=== PATIENT | female | born 1940 | race Caucasian/White ===

== ENCOUNTER → 2016-08-11 | Outpatient (CLI) | payer BC ==
[~2016-08-11] MED LIST: AMLO2.5T PO; LEVO88TA3 PO
--- NOTE | 2016-08-11 15:38 | MAMMOGRAPHY REPORT ---
BILATERAL DIGITAL SCREENING MAMMOGRAM WITH CAD: 08/11/2016 CLINICAL HISTORY: Routine screening. Patient has no complaints. TECHNIQUE: Bilateral CC and MLO views were obtained. Current study was also evaluated with a Compute r Aided Detection (CAD) system. COMPARISON: Comparison is made to exams dated: 08/09/2015 mammogram, 08/07/2014 mammogram, 08/02/2013 m ammogram, 05/26/2012 mammogram, 05/26/2011 mammogram, and 05/14/2010 mammogram - [facility] enter. BREAST COMPOSITION: The tissue of both breasts is almost entirely fatty. FINDINGS: There are a few stable benign-appearing microcalcifications in the breasts. No suspicious mass, architectural distortion or cluster of microcalcifications is seen. IMPRESSION: ACR BI-RADS CATEGORY 1: NEGATIVE There is no mammographic evidence of malignancy. A 1 year screening mammogram is recommended. The pa tient will receive written notification of the results. Approximately 10% of breast cancers are not detected with mammography. A negative mammographic report should not delay biopsy if a clinically suggestive mass is present. Lily Schuster M.D. ay/:08/11/2016 14:37:17 [employer]: Mishel MICHELLE(Harjinder)(M), [facility] letter sent: Normal 1/2 BI-RADS Code: ACR BI-RADS Category 1: Negative
== END | disposition home or self-care (01) ==
LOC: C.MAMM 10:34
PROVIDERS: ATTEND Family Medicine
DX: Z12.31 Encounter for screening mammogram for malignant neoplasm of breast (principal)

== ENCOUNTER → 2017-05-31 | Outpatient (CLI) | payer BC ==
--- NOTE | 2017-05-31 12:27 | DIAGNOSTIC IMAGING REPORT ---
LEFT KNEE 2 VIEWS HISTORY: Left knee pain. COMPARISON: None. FINDINGS: There is no fracture or dislocation. Small knee effusion. Cartilage spaces are maintained for age. No radiopaque foreign bodies. IMPRESSION: Small left knee effusion. No fractures. Electronically signed by: Cleveland Sims M.D. 05/31/2017 12:26 PM Dictated Date/Time: 05/31/2017 12:25 PM
== END | disposition home or self-care (01) ==
LOC: C.RAD1850 12:13
PROVIDERS: ATTEND Family Medicine
DX: M25.569 Pain in unspecified knee (principal); M25.462 Effusion, left knee

== ENCOUNTER 2020-07-31 13:00 | Inpatient (IN) ==
--- NOTE | 2020-07-31 13:32 | Emergency Department Note ---
History of Present Illness General Chief complaint: Referred by Doctor Stated complaint: CHILLS AND FATIGUED Time Seen by Provider: 07/31/20 13:12 Source: patient and family Mode of arrival: ambulatory Limitations: no limitations History of Present Illness Provider complaint: weakness, chills Onset (ago): day(s) 10 Maximum Pain Intensity: 2 This is a 79-year-old female presents emergency department with 10 days of illness. Patient states she began having intermittent fevers and weakness last week. States on Wednesday of last week she went to urgent care, had a Covid test done which was negative, a check of her urine which was negative for infection, and she was encouraged to follow-up with your PCP. Patient states on she contacted her family physician, had a telehealth visit, and labs were ordered which she had done that same day. Patient states she was told she would be contacted with results on Wednesday however she never received a phone ca ll so she finally called this week and was instructed to come the emergency room. Patient states she has not had any persistent fever since then although does continue to complain of chills and weakness. She states she has had slight decreased appetite, no overt nausea or vomiting. She states she had one episode of loose stools, no blood was noted. Denies any rash or swelling. She denies any cough or cold symptoms. States she has noticed pain along the lower anterior ribs bilaterally with a deep breath. Daughter states she also noted that her mother was complaining of back pain today. No recent known sick contacts. She states she was fully vaccinated against coronavirus. Pt seen during a time of high acuity and national emergency pandemic while wearing PPE. Home Medications Medication Instructions Recorded Confirmed Type albuterol sulfate 2 puff INHALATION QID PRN 07/31/20 07/31/20 History amlodipine 2.5 mg PO DAILY 07/31/20 07/31/20 History calcium carbonate [Antacid Calcium] 200 mg PO BID PRN 07/31/20 07/31/20 History levothyroxine 50 mcg PO DAILYBB 07/31/20 07/31/20 History Allergies Allergy/AdvReac Type Severity Reaction Status Date / Time No Known Allergies Allergy Unverified 07/31/20 15:04 Past Med/Surg History Medical History (Updated 07/31/20 @ 21:03 by RAMU Mojica) Asthma Generalized weakness Osteopenia Pneumonia Thyroid goiter Unspecified hypothyroidism Family History (Updated 07/31/20 @ 20:37 by RAMU Mojica) Other Asthma COPD (chronic obstructive pulmonary disease) Coronary heart disease Dyslipidemia Hypertension Social History Smoking Status: Never smoker Second Hand Exposure: No; Do You Dip or Chew Tobacco: No; Tobacco Cessation Education Requested by Patient: No Hx Alcohol Use: Yes Alcohol type: wine Hx Substance Use: No Preferred Language: Somali Communication Ability: Effective Medical Intern Required: No Beliefs That Will Affect Care: None Current Living Situation: Spouse Current Living Situation Comment: Lives at home w/ Other Information That Helps Us Care for You: No Feels Safe at Home: Yes Safety Concerns: Feels Safe At This Time Assistive Devices: Glasses Review of Systems See HPI for pertinent positives & negatives. and A total of 10 systems reviewed and were otherwise negative Physical Exam Vital Signs Vital Signs - 24 hr 07/31/20 13:07 07/31/20 13:39 07/31/20 14:00 Temperature 36.6 C Temperature Source Skin Pulse Rate 112 H 108 H 101 H Pulse Rate from SpO2 Sensor 108 H 100 H Respiratory Rate 18 20 20 Respiratory Effort / Characteristics Non-Labored Spontaneous Respiratory Depth Normal Blood Pressure 160/79 H 134/85 147/64 H Blood Pressure Mean 106 101 91 Blood Pressure Position Sitting Pulse Oximetry 96 95 94 Oxygen Delivery Method Room Air Sepsis Recent Fever Within 48 Hours No Sepsis New/Unexplained Change in Mental Status N/A Sepsis Action Taken by Nursing No Action Required 07/31/20 14:30 07/31/20 15:00 07/31/20 15:30 Temperature Temperature Source Pulse Rate 103 H 109 H 106 H Pulse Rate from SpO2 Sensor 99 H 108 H 104 H Respiratory Rate 20 20 20 Respiratory Effort / Characteristics Respiratory Depth Blood Pressure 141/67 H 137/65 128/55 L Blood Pressure Mean 91 89 79 Blood Pressure Position Pulse Oximetry 93 93 95 Oxygen Delivery Method Sepsis Recent Fever Within 48 Hours Sepsis New/Unexplained Change in Mental Status Sepsis Action Taken by Nursing 07/31/20 16:00 07/31/20 16:01 07/31/20 17:23 Temperature Temperature Source Pulse Rate 108 H 109 H 109 H Pulse Rate from SpO2 Sensor 108 H 108 H 109 H Respiratory Rate 31 H 35 H 20 Respiratory Effort / Characteristics Respiratory Depth Blood Pressure 134/63 135/63 Blood Pressure Mean 86 87 Blood Pressure Position Pulse Oximetry 92 92 93 Oxygen Delivery Method Sepsis Recent Fever Within 48 Hours Sepsis New/Unexplained Change in Mental Status Sepsis Action Taken by Nursing 07/31/20 17:30 07/31/20 18:00 Temperature Temperature Source Pulse Rate 105 H 105 H Pulse Rate from SpO2 Sensor 105 H Respiratory Rate 20 12 Respiratory Effort / Characteristics Respiratory Depth Blood Pressure 145/62 H 125/69 Blood Pressure Mean 89 87 Blood Pressure Position Pulse Oximetry 93 91 Oxygen Delivery Method Sepsis Recent Fever Within 48 Hours Sepsis New/Unexplained Change in Mental Status Sepsis Action Taken by Nursing GENERAL: alert, well appearing, well nourished, no distress, non-toxic EYE EXAM: normal conjunctiva, PERRL and EOM's grossly intact OROPHARYNX: no exudate, no erythema, lips, buccal mucosa, and tongue normal and mucous membranes are moist NECK: supple, no nuchal rigidity, no adenopathy, non-tender LUNGS: Clear to auscultation. Normal chest wall mechanics, no w/r/r HEART: no murmurs, S1 normal and S2 normal ABDOMEN: abdomen soft, non-tender, normo-active bowel sounds, no masses, no rebound or guarding. BACK: Back is symmetrical on inspection and there is no deformity, no midline tenderness, no CVA tenderness. SKIN: no rashes and no bruising UPPER EXTREMITIES: upper extremities are grossly normal. FROM, nml pulses b/l. LOWER EXTREMITIES: No pitting edema. FROM, nml pulses b/l. NEURO EXAM: Normal sensorium, cranial nerves II-XII grossly intact, normal speech, no gross weakness of arms, no gross weakness of legs. Gross sensation intact. Course Course 1340: Outpatient labs obtained show a reassuring BMP, CBC showed WBC count of 2.6, normal H&H, and platelets of 60. Lyme antibody test was negative. 1345: Pt updated on outpt results. 173: Patient updated on additional results. Patient is still tachycardic and mildly tachypneic. Room air oxygen saturations have been in the low 90s. 191: Patient updated on additional results. Patient is still tachycardic, sats in the low 90s, no obvious increased work of breathing. 1925: Case discussed with hospitalist. Administered Medications Acetaminophen (Acetaminophen 325 Mg Tab) 650 mg PO Q4H PRN PRN Reason: Pain or Fever Stop: 08/30/20 22:00 Last Admin: 07/31/20 22:35 Dose: 650 mg Documented by: [id number] Amlodipine Besylate (Amlodipine Besylate 5 Mg Tab) 2.5 mg PO DAILY BONG Stop: 08/31/20 08:59 Last Admin: 08/01/20 10:56 Dose: 2.5 mg Documented by: [id number] Enoxaparin Sodium (Enoxaparin Inj 40 Mg/0.4 Ml Syr) 40 mg SQ Q24H BONG Stop: 08/30/20 22:59 Last Admin: 08/01/20 19:49 Dose: Not Given Documented by: [id number] Admin: 07/31/20 23:28 Dose: Not Given Documented by: [id number] Ceftriaxone Sodium 2,000 mg/ (Dextrose) 70 mls @ 100 mls/hr IV Q24H [facility]; Protocol Stop: 08/07/20 19:59 Last Admin: 08/01/20 19:49 Dose: 100 mls/hr Documented by: [id number] Levothyroxine Sodium (Levothyroxine Sodium 50 Mcg Tablet) 50 mcg PO DAILYBB [facility] Stop: 08/31/20 06:29 Last Admin: 08/01/20 05:36 Dose: 50 mcg Documented by: [id number] Potassium Chloride (Potassium Chloride Crtab 20 Meq Tabcr) 20 meq PO BID BONG Stop: 08/02/20 09:01 Last Admin: 08/01/20 19:49 Dose: 20 meq Documented by: [id number] Admin: 08/01/20 10:56 Dose: 20 meq Documented by: [id number] Discontinued Medications Doxycycline Hyclate (Doxycycline Hyclate 100 Mg Cap) 100 mg PO NOW STA Stop: 07/31/20 19:05 Last Admin: 07/31/20 19:26 Dose: 100 mg Documented by: [id number] Sodium Chloride (Nss 1000ml) 1,000 mls @ 250 mls/hr IV .Q4H BONG Stop: 08/30/20 13:44 Last Admin: 07/31/20 22:04 Dose: Not Given Documented by: [id number] Infusion: 07/31/20 22:03 Dose: 0 mls/hr Documented by: [id number] Admin: 07/31/20 20:22 Dose: 250 mls/hr Documented by: [id number] Infusion: 07/31/20 18:07 Dose: 250 mls/hr Documented by: [id number] Admin: 07/31/20 14:07 Dose: 250 mls/hr Documented by: [id number] Ceftriaxone Sodium (Rocephin) 2,000 mg in 70 mls @ 140 mls/hr IV NOW STA Stop: 07/31/20 19:33 Last Infusion: 07/31/20 20:22 Dose: 0 mls/hr Documented by: [id number] Admin: 07/31/20 19:26 Dose: 140 mls/hr Documented by: [id number] Lactated Ringer's (Lr) 1,000 mls @ 80 mls/hr IV .[id number] ONE Stop: 08/01/20 10:30 Last Infusion: 08/01/20 10:57 Dose: 0 mls/hr Documented by: [id number] Admin: 07/31/20 22:18 Dose: 80 mls/hr Documented by: [id number] Doxycycline Hyclate 100 mg/ (Dextrose) 110 mls @ 50 mls/hr IV Q12H BONG Stop: 08/08/20 05:59 Last Infusion: 08/01/20 08:17 Dose: 0 mls/hr Documented by: [id number] Admin: 08/01/20 05:36 Dose: 50 mls/hr Documented by: [id number] Ioversol (Optiray 350 500ml) 120 ml IV ONCE ONE Stop: 07/31/20 18:13 Last Admin: 07/31/20 18:13 Dose: 120 ml Documented by: [id number] Medical Decision Making Differential Diagnosis Differential Diagnosis includes but is not limited to dehydration, stroke, anemia, hypoglycemia, hyponatremia, hypernatremia, urinary tract infection, pneumonia, bronchitis, sepsis, gastroenteritis, additional abdominal pathology, metabolic abnormalities and infections. Medical Records Attestation: I reviewed the patient's medical records. Home Medications Current Medication List: was personally reviewed by me Laboratory Data Attestation: I reviewed the patient's lab results. Result diagrams: 08/01/20 08:17 08/01/20 08:17 Lab Results 07/31/20 07/31/20 07/31/20 Range/Units 13:45 14:06 14:06 WBC 7.11 (4.8-10.8) K/uL RBC 4.12 L (4.2-5.4) M/uL Hgb 12.8 (12.0-16.0) g/dL Hct 37.2 (37-47) % MCV 90.3 (80-100) fL MCH 31.1 (25-34) pg MCHC 34.4 (32-36) g/dL RDW Std Deviation 45.6 (36.4-46.3) fL RDW Coeff of Puneet 13.7 (11.5-14.5) % Plt Count 203 (130-400) K/uL MPV 9.8 (7.4-10.4) fL Immature Gran % (Auto) 0.3 % Neut % (Auto) 72.9 % Lymph % (Auto) 17.7 % Teller % (Auto) 8.4 % Eos % (Auto) 0.3 % Baso % (Auto) 0.4 % Neut # (Auto) 5.18 (1.4-6.5) K/uL Lymph # (Auto) 1.26 (1.2-3.4) K/uL Teller # (Auto) 0.60 H (0.11-0.59) K/uL Eos # (Auto) 0.02 (0-0.5) K/uL Baso # (Auto) 0.03 (0-0.2) K/uL Immature Gran # (Auto) 0.02 (0.00-0.02) K/uL Sodium 135 L (136-145) mmol/L Potassium 3.7 (3.5-5.1) mmol/L Chloride 104 (98-107) mmol/L Carbon Dioxide 23 (21-32) mmol/L Anion Gap 8.0 (3-11) BUN 7 (7-18) mg/dl Creatinine 0.65 (0.6-1.2) mg/dl Est Cr Clr Drug Dosing 72.5 ml/min Est GFR ( Amer) 97.9 ml/min Est GFR (Non-Af Amer) 84.4 ml/min BUN/Creatinine Ratio 11.2 (10-20) Glucose 97 (70-99) mg/dl Lactate (0.4-2.0) mmol/L Calcium 8.3 L (8.5-10.1) mg/dl Magnesium 2.3 (1.8-2.4) mg/dl Total Bilirubin 0.7 (0.2-1) mg/dl AST 75 H (15-37) U/L ALT 126 H (12-78) U/L Alkaline Phosphatase 171 H (45-117) U/L Troponin I < 0.015 (0-0.045) ng/ml C-Reactive Protein (0-0.29) mg/dl NT-Pro-B Natriuret Pep 427 (0-1800) pg/ml Total Protein 6.9 (6.4-8.2) gm/dl Albumin 2.8 L (3.4-5.0) gm/dl Globulin 4.1 H (2.5-4.0) gm/dl Albumin/Globulin Ratio 0.7 L (0.9-2) Lipase 120 (73-393) U/L Procalcitonin (0-0.5) ng/ml TSH 0.470 (0.300-4.500) uIu/ml Urine Color Dark Yellow Urine Appearance Cloudy A (Clear) Urine pH 5.5 (4.5-7.5) Ur Specific [place] 1.017 (1.000-1.030) Urine Protein 1+ H (Negative) Urine Glucose (UA) Negative (Negative) Urine Ketones Trace H (Negative) Urine Blood Negative (Negative) Urine Nitrite Negative (Negative) Urine Bilirubin Negative (Negative) Urine Urobilinogen Positive H (Negative) Ur Leukocyte Esterase 1+ H (Negative) Urine WBC (Auto) 5-10 H (0-5) /hpf Urine RBC (Auto) 0-4 (0-4) /hpf U Hyaline Cast (Auto) 1-5 (0-5) /lpf U Epithel Cells (Auto) 10-20 H (0-5) /lpf Urine Bacteria (Auto) Negative (Negative) Anaplasma Smear See Comment COVID-19 Eval Order SARS-CoV-2 (PCR) (Negative) 07/31/20 07/31/20 07/31/20 Range/Units 14:06 14:06 19:25 WBC (4.8-10.8) K/uL RBC (4.2-5.4) M/uL Hgb (12.0-16.0) g/dL Hct (37-47) % MCV (80-100) fL MCH (25-34) pg MCHC (32-36) g/dL RDW Std Deviation (36.4-46.3) fL RDW Coeff of Puneet (11.5-14.5) % Plt Count (130-400) K/uL MPV (7.4-10.4) fL Immature Gran % (Auto) % Neut % (Auto) % Lymph % (Auto) % Teller % (Auto) % Eos % (Auto) % Baso % (Auto) % Neut # (Auto) (1.4-6.5) K/uL Lymph # (Auto) (1.2-3.4) K/uL Teller # (Auto) (0.11-0.59) K/uL Eos # (Auto) (0-0.5) K/uL Baso # (Auto) (0-0.2) K/uL Immature Gran # (Auto) (0.00-0.02) K/uL Sodium (136-145) mmol/L Potassium (3.5-5.1) mmol/L Chloride (98-107) mmol/L Carbon Dioxide (21-32) mmol/L Anion Gap (3-11) BUN (7-18) mg/dl Creatinine (0.6-1.2) mg/dl Est Cr Clr Drug Dosing ml/min Est GFR ( Amer) ml/min Est GFR (Non-Af Amer) ml/min BUN/Creatinine Ratio (10-20) Glucose (70-99) mg/dl Lactate (0.4-2.0) mmol/L Calcium (8.5-10.1) mg/dl Magnesium (1.8-2.4) mg/dl Total Bilirubin (0.2-1) mg/dl AST (15-37) U/L ALT (12-78) U/L Alkaline Phosphatase (45-117) U/L Troponin I (0-0.045) ng/ml C-Reactive Protein 11.00 H (0-0.29) mg/dl NT-Pro-B Natriuret Pep (0-1800) pg/ml Total Protein (6.4-8.2) gm/dl Albumin (3.4-5.0) gm/dl Globulin (2.5-4.0) gm/dl Albumin/Globulin Ratio (0.9-2) Lipase (73-393) U/L Procalcitonin 0.16 (0-0.5) ng/ml TSH (0.300-4.500) uIu/ml Urine Color Urine Appearance (Clear) Urine pH (4.5-7.5) Ur Specific [place] (1.000-1.030) Urine Protein (Negative) Urine Glucose (UA) (Negative) Urine Ketones (Negative) Urine Blood (Negative) Urine Nitrite (Negative) Urine Bilirubin (Negative) Urine Urobilinogen (Negative) Ur Leukocyte Esterase (Negative) Urine WBC (Auto) (0-5) /hpf Urine RBC (Auto) (0-4) /hpf U Hyaline Cast (Auto) (0-5) /lpf U Epithel Cells (Auto) (0-5) /lpf Urine Bacteria (Auto) (Negative) Anaplasma Smear COVID-19 Eval Order Covid19 at [facility] SARS-CoV-2 (PCR) (Negative) 07/31/20 07/31/20 Range/Units 19:25 21:15 WBC (4.8-10.8) K/uL RBC (4.2-5.4) M/uL Hgb (12.0-16.0) g/dL Hct (37-47) % MCV (80-100) fL MCH (25-34) pg MCHC (32-36) g/dL RDW Std Deviation (36.4-46.3) fL RDW Coeff of Puneet (11.5-14.5) % Plt Count (130-400) K/uL MPV (7.4-10.4) fL Immature Gran % (Auto) % Neut % (Auto) % Lymph % (Auto) % Teller % (Auto) % Eos % (Auto) % Baso % (Auto) % Neut # (Auto) (1.4-6.5) K/uL Lymph # (Auto) (1.2-3.4) K/uL Teller # (Auto) (0.11-0.59) K/uL Eos # (Auto) (0-0.5) K/uL Baso # (Auto) (0-0.2) K/uL Immature Gran # (Auto) (0.00-0.02) K/uL Sodium (136-145) mmol/L Potassium (3.5-5.1) mmol/L Chloride (98-107) mmol/L Carbon Dioxide (21-32) mmol/L Anion Gap (3-11) BUN (7-18) mg/dl Creatinine (0.6-1.2) mg/dl Est Cr Clr Drug Dosing ml/min Est GFR ( Amer) ml/min Est GFR (Non-Af Amer) ml/min BUN/Creatinine Ratio (10-20) Glucose (70-99) mg/dl Lactate 1.2 (0.4-2.0) mmol/L Calcium (8.5-10.1) mg/dl Magnesium (1.8-2.4) mg/dl Total Bilirubin (0.2-1) mg/dl AST (15-37) U/L ALT (12-78) U/L Alkaline Phosphatase (45-117) U/L Troponin I (0-0.045) ng/ml C-Reactive Protein (0-0.29) mg/dl NT-Pro-B Natriuret Pep (0-1800) pg/ml Total Protein (6.4-8.2) gm/dl Albumin (3.4-5.0) gm/dl Globulin (2.5-4.0) gm/dl Albumin/Globulin Ratio (0.9-2) Lipase (73-393) U/L Procalcitonin (0-0.5) ng/ml TSH (0.300-4.500) uIu/ml Urine Color Urine Appearance (Clear) Urine pH (4.5-7.5) Ur Specific [place] (1.000-1.030) Urine Protein (Negative) Urine Glucose (UA) (Negative) Urine Ketones (Negative) Urine Blood (Negative) Urine Nitrite (Negative) Urine Bilirubin (Negative) Urine Urobilinogen (Negative) Ur Leukocyte Esterase (Negative) Urine WBC (Auto) (0-5) /hpf Urine RBC (Auto) (0-4) /hpf U Hyaline Cast (Auto) (0-5) /lpf U Epithel Cells (Auto) (0-5) /lpf Urine Bacteria (Auto) (Negative) Anaplasma Smear COVID-19 Eval Order SARS-CoV-2 (PCR) NEGATIVE (Negative) Imaging Data Radiologist's Impression: Chest X-Ray 07/31/20 13:29 XR chest 1V portable HISTORY: Atypical chest pain. COMPARISON: Chest 04/09/2015. FINDINGS: No pneumothorax. The heart is borderline enlarged. There is mild diffuse interstitial/vascular thickening. This may represent mild pulmonary edema. Small left pleural effusion and left basilar densities. Right tracheal deviation, unchanged. This could be due to a left-sided thyroid goiter. There is progressive soft tissue prominence within the left paratracheal/superior mediastinal location. IMPRESSION: 1. Progressive interstitial/vascular thickening and a small left pleural effusion. This favors mild interstitial pulmonary edema. 2. Left basilar densities are nonspecific but favor atelectasis from the pleural effusion. 3. Right tracheal deviation, unchanged. There is slight progression of the soft tissue prominence within the superior mediastinum. This favors a thyroid goiter. However, dedicated nonemergent chest CT is recommended for further evaluation. ACT 112: Negative or not required by law. Electronically signed by: Cleveland Sims M.D. 07/31/2020 2:10 PM Abdomen Ultrasound 07/31/20 15:41 ABDOMINAL ULTRASOUND, RIGHT UPPER QUADRANT HISTORY: Abnormal liver function tests, fever. COMPARISON: None. FINDINGS: The liver is echogenic. The liver is heterogeneous. There is slight nodularity of the liver surface. No biliary ductal dilatation is present. Common bile duct measures 4 mm in caliber. No gallstones are identified. There is a tiny 4 mm gallbladder polyp. Pancreatic body is normal. Head and tail are obscu red. There is no right hydronephrosis. IMPRESSION: 1. Hepatic steatosis. Heterogeneity of the liver and slight nodularity of the liver surface raises the possibility of cirrhosis. 2. No gallstones. Tiny 4 mm gallbladder polyp. 3. No biliary ductal dilatation. ACT 112: Negative or not required by law. Electronically signed by: Mehdi Gonzalez M.D. 07/31/2020 4:51 PM Chest CTA 07/31/20 17:31 CT ANGIOGRAM OF THE CHEST CLINICAL HISTORY: Atypical chest pain. Pleural effusion. COMPARISON STUDY: Chest x-ray dated 07/31/2020. TECHNIQUE: Following the IV administration of 120 cc of Optiray 350, CT angiogram of the chest was performed from the upper abdomen to the thoracic inlet utilizing the pulmonary embolus protocol. Images are reviewed in the axial, sagittal, and coronal planes. 3-D MIPS images are created and assessed. IV contrast was administered without complication. A dose lowering technique was utilized adhering to the principles of ALARA. CT DOSE: 294.97 mGy.cm FINDINGS: Thyroid: The thyroid gland is enlarged and heterogeneous. An approximately 8 cm heterogeneous structure extending into the mediastinum and causing rightward deviation of the trachea likely represents a thyroid goiter. This contains coarse calcifications. Thoracic aorta: The thoracic aorta is normal in caliber and demonstrates bovine variant arch anatomy. No dissection is seen. Pulmonary vasculature: The pulmonary trunk is normal in caliber. There are no filling defects identified in main, lobar, or segmental pulmonary branches to suggest pulmonary embolus. Heart: The heart is top normal in size and without pericardial effusion. Lungs and pleural spaces: Evaluation of the lung parenchyma is degraded by motion artifact. There is bibasilar consolidation, left greater than right. There are trace pleural effusions, left larger than right. The trachea and central airways are clear. There is mild diffuse intralobular septal thickening. Mediastinum: There are mildly enlarged mediastinal lymph nodes. A precarinal node on image #157 measures 12 mm in short axis. Prevascular nodes measure up to 9 mm in short axis. Thuy: Clear. Axillae: There is no axillary lymphadenopathy. Upper abdomen: There is a small hiatal hernia. Partially visualized upper abdominal viscera is otherwise within normal limits. Skeletal structures: The skeletal structures are osteopenic. Degenerative change and hyperkyphosis are noted in the thoracic spine. No lytic or blastic bony lesions are seen. IMPRESSION: 1. There is no evidence of pulmonary embolus in the main, lobar, or segmental pulmonary arteries. 2. There is bibasilar consolidation, left greater than right. This could represent atelectasis versus pneumonia/aspiration pneumonitis. Clinical correlation will be required and radiographic follow-up to resolution is recommended. 3. Trace pleural effusions, left larger than right. 4. Multinodular goiter, with an 8 cm heterogeneous mass lesion extending into the mediastinum. This is pathologically indeterminant and likely represents extension of the goiter. 5. Additional findings as above. ACT 112: Negative or not required by law. Electronically signed by: Derrick Mancuso M.D. 07/31/2020 6:47 PM ECG Data Attestation: I personally reviewed and interpreted this ECG as follows: Indication: + weakness Rate (beats per minute): 103 Rhythm: + sinus tachycardia ECG Intervals/blocks: + Normal QRS and + Normal QT ECG [place]: + Normal ECG ST segments: + Nonspecific ST abnormalities Additional Comments: baseline artifact MDM Narrative An order was placed for continuous cardiac monitoring. The monitor shows a rate of 105_ with _sinus tachycardia_ rhythm. Patient has no contributing family history given her age. Patient was first seen and observation began at 1312 and was necessary in order to determine etiology of fevers and weakness. Upon re-evaluation, 6 hours of observation revealed that the patient should be admitted. Discharge time at 1926. This is a 79-year-old female who presents with a prolonged evolution of fevers, weakness, loss of appetite, and was referred in by her PCP. I did review outpatient labs from last week, and we were able to compare to this week. Patient's prior leukopenia and thrombocytopenia appeared resolved on today's labs. Patient had a septic work-up started. While there were no prior LFTs for comparison patient did state she recollects being told her liver numbers were abnormal previously. I right upper quadrant ultrasound was reassuring. Due to concern for small pleural effusion noted on the left with no prior history, no evidence of congestive heart failure otherwise, patient sent for CT imaging which ultimately revealed bilateral lower lobe pneumonia. Patient started on antibiotic coverage for presumed community-acquired pneumonia. No recent travel, hospitalization. No underlying pulmonary history to suggest she is at increased risk for Pseudomonas. Patient was hemodynamically stable in the emergency room. I do not suspect bacteremia/sepsis. No evidence of PE. No evidence for pericarditis/myocarditis. Given patient's age and elevated CURB 65 score, persistent tachycardia, and borderline hypoxia, case discussed with hospitalist for additional inpatient evaluation and monitoring. Patient and daughter bedside made aware of all results, verbalized understanding, and were in agreement with plan. Impression & Plan Pneumonia, Tachycardia, Fever, Generalized weakness Discharge Plan Visit Data Chief Complaint: Referred by Doctor Stated Complaint: CHILLS AND FATIGUED ED Provider: Alayna Mckeon Discharge Problem: Pneumonia, Tachycardia, Fever, Generalized weakness Patient Disposition: Admitted As Inpatient Discharge Instructions Interventions: ED Discharge Assessment Last Done: 07/31/20 22:12 Discharge Problem: Pneumonia Qualifiers: Pneumonia type: due to unspecified organism Laterality: bilateral Lung location: lower lobe of lung Qualified Code(s): J18.9 - Pneumonia, unspecified organism Fever Qualifiers: Fever type: due to other condition Qualified Code(s): R50.81 - Fever presenting with conditions classified elsewhere
[2020-07-31] MEDS: SODIUM CHLORIDE 0.9% 1000ML 1,000 ML IV SCH ×3 (14:07→22:04)
--- NOTE | 2020-07-31 14:12 | XRay Report ---
XR chest 1V portable HISTORY: Atypical chest pain. COMPARISON: Chest 04/09/2015. FINDINGS: No pneumothorax. The heart is borderline enlarged. There is mild diffuse interstitial/vascu lar thickening. This may represent mild pulmonary edema. Small left pleural effusion and left basilar densities. Right tracheal deviation, unchanged. This could be due to a left-sided thyroid goiter. Th ere is progressive soft tissue prominence within the left paratracheal/superior mediastinal location. IMPRESSION: 1. Progressive interstitial/vascular thickening and a small left pleural effusion. This favors mild i nterstitial pulmonary edema. 2. Left basilar densities are nonspecific but favor atelectasis from the pleural effusion. 3. Right tracheal deviation, unchanged. There is slight progression of the soft tissue prominence wit hin the superior mediastinum. This favors a thyroid goiter. However, dedicated nonemergent chest CT i s recommended for further evaluation. ACT 112: Negative or not required by law. Electronically signed by: Cleveland Sims M.D. 07/31/2020 2:10 PM
[2020-07-31 14:20] LABS: Basophils # (auto) 0.03 K/uL (0-0.2); Basophils % (auto) 0.4 %; Eosinophils # (auto) 0.02 K/uL (0-0.5); Eosinophils % (auto) 0.3 %; Hematocrit (blood only) 37.2 % (37-47); Hemoglobin 12.8 g/dL (12.0-16.0); Immature Granulocytes # (auto) 0.02 K/uL (0.00-0.02); Immature Granulocytes % (auto) 0.3 %; Lymphocytes # (auto) 1.26 K/uL (1.2-3.4); Lymphocytes % (auto) 17.7 %; Mean Corpuscular Hemoglobin 31.1 pg (25-34); Mean Corpuscular Hgb Conc 34.4 g/dL (32-36); Mean Corpuscular Volume 90.3 fL (80-100); Mean Platelet Volume 9.8 fL (7.4-10.4); Monocytes % (auto) 8.4 %; Neutrophils # (auto) 5.18 K/uL (1.4-6.5); Neutrophils % (auto) 72.9 %; Platelet Count 203 K/uL (130-400); RDW Coefficient of Variation 13.7 % (11.5-14.5); RDW Standard Deviation 45.6 fL (36.4-46.3); Red Blood Count 4.12 M/uL (4.2-5.4); White Blood Count 7.11 K/uL (4.8-10.8)
[2020-07-31 14:27] LABS: Appearance Urine Cloudy (Clear); Bacteria Urine Automated Negative (Negative); Bilirubin Urine Negative (Negative); Blood Urine Negative (Negative); Color Urine Dark Yellow; Glucose Urine UA Negative (Negative); Ketones Urine Trace (Negative); Leukocyte Esterase Urine 1+ (Negative); Nitrite Urine Negative (Negative); Protein Urine 1+ (Negative); Specific Gravity Urine 1.017 (1.000-1.030); Urobilinogen Urine Positive (Negative); pH Urine 5.5 (4.5-7.5)
[2020-07-31 14:46] LABS: RBC Urine Automated 0-4 /hpf (0-4)
[2020-07-31 14:51] LABS: Alanine Aminotransferase 126 U/L (12-78); Albumin Level 2.8 gm/dl (3.4-5.0); Aspartate Aminotransferase 75 U/L (15-37); BUN Creatinine Ratio 11.2 (10-20); Blood Urea Nitrogen 7 mg/dl (7-18); Calcium 8.3 mg/dl (8.5-10.1); Carbon Dioxide 23 mmol/L (21-32); Chloride 104 mmol/L (98-107); Creatinine Clr Calc Pharmacy 72.5 ml/min; Est GFR (African American) 97.9 ml/min; Est GFR (Non-African American) 84.4 ml/min; Glucose 97 mg/dl (70-99); Lipase 120 U/L (73-393); Magnesium 2.3 mg/dl (1.8-2.4); Potassium 3.7 mmol/L (3.5-5.1); Sodium 135 mmol/L (136-145)
[2020-07-31 15:00] LABS: Albumin Globulin Ratio 0.7 (0.9-2); Alkaline Phosphatase 171 U/L (45-117); Bilirubin,Total 0.7 mg/dl (0.2-1); Globulin 4.1 gm/dl (2.5-4.0); NT Pro B Type Natriuretic Pept 427 pg/ml (0-1800); Total Protein 6.9 gm/dl (6.4-8.2); Troponin I < 0.015 ng/ml (0-0.045)
--- NOTE | 2020-07-31 16:53 | Ultrasound Report ---
ABDOMINAL ULTRASOUND, RIGHT UPPER QUADRANT HISTORY: Abnormal liver function tests, fever. COMPARISON: None. FINDINGS: The liver is echogenic. The liver is heterogeneous. There is slight nodularity of the liver surface. No biliary ductal dilatation is present. Common bile duct measures 4 mm in caliber. No gall stones are identified. There is a tiny 4 mm gallbladder polyp. Pancreatic body is normal. Head and ta il are obscured. There is no right hydronephrosis. IMPRESSION: 1. Hepatic steatosis. Heterogeneity of the liver and slight nodularity of the liver surface raises th e possibility of cirrhosis. 2. No gallstones. Tiny 4 mm gallbladder polyp. 3. No biliary ductal dilatation. ACT 112: Negative or not required by law. Electronically signed by: Mehdi Gonzalez M.D. 07/31/2020 4:51 PM
--- NOTE | 2020-07-31 17:56 | Electrocardiogram Report ---
Test Reason : Blood Pressure : / mmHG Vent. Rate : 103 BPM Atrial Rate : 103 BPM P-R Int : 122 ms QRS Dur : 084 ms QT Int : 336 ms P-R-T Axes : 049 019 036 degrees QTc Int : 440 ms Poor data quality, interpretation may be adversely affected Sinus tachycardia Nonspecific ST abnormality Abnormal ECG When compared with ECG of 24-OCT-1997 16:20, No significant change was found Confirmed by Dandre Rolle ([id number]) on 07/31/2020 5:55:45 PM Referred By: Jennifer Garcia Confirmed By:Lee Rolle
[2020-07-31] MEDS ORDERED: OPTIRAY 350 500ml IV ONE (18:12)
--- NOTE | 2020-07-31 18:48 | CT Scan Report ---
CT ANGIOGRAM OF THE CHEST CLINICAL HISTORY: Atypical chest pain. Pleural effusion. COMPARISON STUDY: Chest x-ray dated 07/31/2020. TECHNIQUE: Following the IV administration of 120 cc of Optiray 350, CT angiogram of the chest was pe rformed from the upper abdomen to the thoracic inlet utilizing the pulmonary embolus protocol. Images are reviewed in the axial, sagittal, and coronal planes. 3-D MIPS images are created and assessed. I V contrast was administered without complication. A dose lowering technique was utilized adhering to the principles of ALARA. CT DOSE: 294.97 mGy.cm FINDINGS: Thyroid: The thyroid gland is enlarged and heterogeneous. An approximately 8 cm heterogeneous structu re extending into the mediastinum and causing rightward deviation of the trachea likely represents a thyroid goiter. This contains coarse calcifications. Thoracic aorta: The thoracic aorta is normal in caliber and demonstrates bovine variant arch anatomy. No dissection is seen. Pulmonary vasculature: The pulmonary trunk is normal in caliber. There are no filling defects identif ied in main, lobar, or segmental pulmonary branches to suggest pulmonary embolus. Heart: The heart is top normal in size and without pericardial effusion. Lungs and pleural spaces: Evaluation of the lung parenchyma is degraded by motion artifact. There is bibasilar consolidation, left greater than right. There are trace pleural effusions, left larger than right. The trachea and central airways are clear. There is mild diffuse intralobular septal thickeni ng. Mediastinum: There are mildly enlarged mediastinal lymph nodes. A precarinal node on image #157 measu res 12 mm in short axis. Prevascular nodes measure up to 9 mm in short axis. Thuy: Clear. Axillae: There is no axillary lymphadenopathy. Upper abdomen: There is a small hiatal hernia. Partially visualized upper abdominal viscera is otherw ise within normal limits. Skeletal structures: The skeletal structures are osteopenic. Degenerative change and hyperkyphosis ar e noted in the thoracic spine. No lytic or blastic bony lesions are seen. IMPRESSION: 1. There is no evidence of pulmonary embolus in the main, lobar, or segmental pulmonary arteries. 2. There is bibasilar consolidation, left greater than right. This could represent atelectasis versus pneumonia/aspiration pneumonitis. Clinical correlation will be required and radiographic follow-up t o resolution is recommended. 3. Trace pleural effusions, left larger than right. 4. Multinodular goiter, with an 8 cm heterogeneous mass lesion extending into the mediastinum. This i s pathologically indeterminant and likely represents extension of the goiter. 5. Additional findings as above. ACT 112: Negative or not required by law. Electronically signed by: Derrick Mancuso M.D. 07/31/2020 6:47 PM
[2020-07-31] MEDS ORDERED: cefTRIAXone SODIUM 2,000 MG/70 ML BAG IV STA (19:04)
[2020-07-31] MEDS ORDERED: DOXYCYCLINE HYCLATE 100 MG CAP PO STA (19:04)
--- NOTE | 2020-07-31 20:20 | History & Physical Report ---
Date of Service July 31, 2020 Assessment & Plan (1) Pneumonia: Patient with bilateral lobar pneumonia small pleural effusions - SIRS-1 QSOFA- 0 - Initial labs last week with leukopenia and thrombocytopenia- WBC currently 7.11; Platelet count 203 - CURB 65- 1- not toxic appearing - Not hypoxic, afebrile, no sputum - Continue Rocephin and Doxycycline for atypical - Anaplasmosis, Ehrlichiosis sent - Blood Cultures pending- PCT, CRP-11 - Lactate pending There are mildly enlarged mediastinal lymph nodes. A precarinal node on image #157 measures 12 mm in short axis. Prevascular nodes measure up to 9 mm in short axis. (2) Fever: Subjectively reported as 102.7 afebrile while here - In conjunction with her leukopenia, and thrombocytopenia which is now resolved, elevated LFT - As above continuing Doxy- tick borne labs pending (3) Asthma: Continue albuterol (4) Thyroid goiter: Multinodular goiter, with an 8 cm heterogeneous mass lesion extending into the mediastinum. This is pathologically indeterminant and likely represents extension of the goiter. - Consider follow up with endocrinology through PCP office (5) Osteopenia: Continue Vitamin D (6) Elevated liver enzymes: As above- RUQUS- hepato steatosis - Cirrhosis vs Early phase reactant vs tickborne History of Present Illness Primary Care Provider: Jennifer Garcia 79 YOF with past medical history of: Asthma, Hypothyroidism, HTN. Patient comes in today for ongoing fevers, chills, mild myalgia, and fatigue. Patient says for about a week she has been having fevers and monitoring at home she had a fever of high 102.7. She was seen at an Urgent care last week, where she had a COVID test done that was reportedly negative and she had a urine test that was done that was reported as negative. She called her PCP on of last week, where she had a telehealth visit done secondary to her having fevers. She had labs drawn and was to be contacted if any abnormalities. She did not hear any results or call-backs so she called them today and told them of her continued symptoms and was referred to the Emergency Department. The patient denies any sick contacts or traveling. Everyone in household is not feeling ill. The patient does spend allot of her time outside gardening and working with her waite. She does have a pet dog. She denies any tick bites or removing a tick off her. She reportedly had a Lyme test run. Her lab results from PCP on 25Jul2020- WBC 2.1- PLT-60 with rest of cell lines normal range. In the EMD the patient had a CXR done, CTA of the chest, and RUQ ultrasound performed, she has bibasilar consolidation; small bilateral effusions LT>RT. Also with Multinodular goiter, with an 8 cm heterogeneous mass lesion extending into the mediastinum. This is pathologically indeterminant and likely represents extension of the goiter. Allergies Allergy/AdvReac Type Severity Reaction Status Date / Time No Known Allergies Allergy Unverified 07/31/20 15:04 Home Medications Medication Instructions Recorded Confirmed Type albuterol sulfate 2 puff INHALATION QID PRN 07/31/20 07/31/20 History amlodipine 2.5 mg PO DAILY 07/31/20 07/31/20 History calcium carbonate [Antacid Calcium] 200 mg PO BID PRN 07/31/20 07/31/20 History levothyroxine 50 mcg PO DAILYBB 07/31/20 07/31/20 History Past Med/Surg History Medical History (Updated 07/31/20 @ 21:03 by RAMU Mojica) Asthma Generalized weakness Osteopenia Pneumonia Thyroid goiter Unspecified hypothyroidism Family History (Updated 07/31/20 @ 20:37 by RAMU Mojica) Other Asthma COPD (chronic obstructive pulmonary disease) Coronary heart disease Dyslipidemia Hypertension Social History Smoking Status: Never smoker Second Hand Exposure: No; Do You Dip or Chew Tobacco: No; Tobacco Cessation Education Requested by Patient: No Hx Alcohol Use: Yes Alcohol type: wine Hx Substance Use: No Preferred Language: Hungarian Communication Ability: Effective Glue Cook Required: No Beliefs That Will Affect Care: None Current Living Situation: Spouse Current Living Situation Comment: Lives at home w/ Other Information That Helps Us Care for You: No Feels Safe at Home: Yes Safety Concerns: Feels Safe At This Time Assistive Devices: Glasses Review of Systems Review of Systems: REVIEW OF SYSTEMS: Constitutional: (+) fever, sweats or chills Eyes: No diplopia, no worsening or blurred vision ENT: normal hearing, no trouble swallowing Respiratory:(+) dyspnea with exertion, No cough, sputum, Cardiovascular: No chest pain, tightness or palpitations Abdomen: No pain, nausea, vomiting, diarrhea or constipation Musculoskeletal:(+) joint pain knees and upper back, calf pain, swelling Neurologic: No weakness, numbness/tingling, or balance problems Psychiatric: No anxiety or depression Skin: No rash or itch Physical Exam Physical Exam: PHYSICAL EXAM: General: awake, alert, no apparent distress Head: Normocephalic, atraumatic ENT: PERRL, EOMI, no pharyngeal exudate, mucous membranes moist Neuro: AAO x 3, speech clear and appropriate, strength intact bilaterally 5/5, sensation intact and equal all extremities and dermatomes, no pronator drift Chest: equal rise and fall of the chest, no accessory muscle use, no heaves or thrills, scattered rhonchi decreased in bases, egophony in lower lobes, on room air Cardiac: Regular rate and rhythm, telemetry reviewed, skin warm dry, cap refill <3 seconds, peripheral pulses +2 no JVD, no murmur, no JVD, no edema GI: NABS x 4 quadrants, soft, nontender to palpation, no rebound, guarding or tenderness : Spontaneously voiding, no pain, no CVA tenderness, Extremities: Normal inspection, no peripheral edema or erythema, calfs nontender to palpation Psych: Normal mood and affect Skin: no rash or erythema Results & Data Results & Data ([facility]) Vital Signs (Past 12 Hours) Vital Signs Temp Pulse Resp BP Pulse Ox 07/31/20 18:00 105 H 12 125/69 91 07/31/20 17:30 105 H 20 145/62 H 93 07/31/20 17:23 109 H 20 135/63 93 07/31/20 16:01 109 H 35 H 92 07/31/20 16:00 108 H 31 H 134/63 92 07/31/20 15:30 106 H 20 128/55 L 95 07/31/20 15:00 109 H 20 137/65 93 07/31/20 14:30 103 H 20 141/67 H 93 07/31/20 14:00 101 H 20 147/64 H 94 07/31/20 13:39 108 H 20 134/85 95 07/31/20 13:07 36.6 C 112 H 18 160/79 H 96 Laboratory Results Abnormal lab results 07/31/20 07/31/20 07/31/20 Range/Units 13:45 14:06 14:06 RBC 4.12 L (4.2-5.4) M/uL [place] # (Auto) 0.60 H (0.11-0.59) K/uL Sodium 135 L (136-145) mmol/L Calcium 8.3 L (8.5-10.1) mg/dl AST 75 H (15-37) U/L ALT 126 H (12-78) U/L Alkaline Phosphatase 171 H (45-117) U/L Albumin 2.8 L (3.4-5.0) gm/dl Globulin 4.1 H (2.5-4.0) gm/dl Albumin/Globulin Ratio 0.7 L (0.9-2) Urine Appearance Cloudy A (Clear) Urine Protein 1+ H (Negative) Urine Ketones Trace H (Negative) Urine Urobilinogen Positive H (Negative) Ur Leukocyte Esterase 1+ H (Negative) Urine WBC (Auto) 5-10 H (0-5) /hpf U Epithel Cells (Auto) 10-20 H (0-5) /lpf Diagnostic Findings Chest X-Ray 07/31/20 13:29 XR chest 1V portable HISTORY: Atypical chest pain. COMPARISON: Chest 04/09/2015. FINDINGS: No pneumothorax. The heart is borderline enlarged. There is mild dif fuse interstitial/vascular thickening. This may represent mild pulmonary edema. Small left pleural effusion and left basilar densities. Right tracheal deviation, unchanged. This could be due to a left-sided thyroid goiter. There is progressive soft tissue prominence within the left paratracheal/superior mediastinal location. IMPRESSION: 1. Progressive interstitial/vascular thickening and a small left pleural effusion. This favors mild interstitial pulmonary edema. 2. Left basilar densities are nonspecific but favor atelectasis from the pleural effusion. 3. Right tracheal deviation, unchanged. There is slight progression of the soft tissue prominence within the superior mediastinum. This favors a thyroid goiter. However, dedicated nonemergent chest CT is recommended for further evaluation. Electronically signed by: Cleveland Sims M.D. 07/31/2020 2:10 PM Abdomen Ultrasound 07/31/20 15:41 ABDOMINAL ULTRASOUND, RIGHT UPPER QUADRANT HISTORY: Abnormal liver function tests, fever. COMPARISON: None. FINDINGS: The liver is echogenic. The liver is heterogeneous. There is slight nodularity of the liver surface. No biliary ductal dilatation is present. Common bile duct measures 4 mm in caliber. No gallstones are identified. There is a tiny 4 mm gallbladder polyp. Pancreatic body is normal. Head and tail are obscured. There is no right hydronephrosis. IMPRESSION: 1. Hepatic steatosis. Heterogeneity of the liver and slight nodularity of the liver surface raises the possibility of cirrhosis. 2. No gallstones. Tiny 4 mm gallbladder polyp. 3. No biliary ductal dilatation. Electronically signed by: Mehdi Gonzalez M.D. 07/31/2020 4:51 PM Chest CTA 07/31/20 17:31 CT ANGIOGRAM OF THE CHEST CLINICAL HISTORY: Atypical chest pain. Pleural effusion. COMPARISON STUDY: Chest x-ray dated 07/31/2020. TECHNIQUE: Following the IV administration of 120 cc of Optiray 350, CT angiogram of the chest was performed from the upper abdomen to the thoracic inlet utilizing the pulmonary embolus protocol. Images are reviewed in the axial, sagittal, and coronal planes. 3-D MIPS images are created and assessed. IV contrast was administered without complication. A dose lowering technique was utilized adhering to the principles of ALARA. CT DOSE: 294.97 mGy.cm FINDINGS: Thyroid: The thyroid gland is enlarged and heterogeneous. An approximately 8 cm heterogeneous structure extending into the mediastinum and causing rightward deviation of the trachea likely represents a thyroid goiter. This contains coarse calcifications. Thoracic aorta: The thoracic aorta is normal in caliber and demonstrates bovine variant arch anatomy. No dissection is seen. Pulmonary vasculature: The pulmonary trunk is normal in caliber. There are no filling defects identified in main, lobar, or segmental pulmonary branches to suggest pulmonary embolus. Heart: The heart is top normal in size and without pericardial effusion. Lungs and pleural spaces: Evaluation of the lung parenchyma is degraded by motion artifact. There is bibasilar consolidation, left greater than right. There are trace pleural effusions, left larger than right. The trachea and central airways are clear. There is mild diffuse intralobular septal thickening. Mediastinum: There are mildly enlarged mediastinal lymph nodes. A precarinal node on image #157 measures 12 mm in short axis. Prevascular nodes measure up to 9 mm in short axis. Thuy: Clear. Axillae: There is no axillary lymphadenopathy. Upper abdomen: There is a small hiatal hernia. Partially visualized upper abdominal viscera is otherwise within normal limits. Skeletal structures: The skeletal structures are osteopenic. Degenerative change and hyperkyphosis are noted in the thoracic spine. No lytic or blastic bony lesions are seen. IMPRESSION: 1. There is no evidence of pulmonary embolus in the main, lobar, or segmental pulmonary arteries. 2. There is bibasilar consolidation, left greater than right. This could represent atelectasis versus pneumonia/aspiration pneumonitis. Clinical correlation will be required and radiographic follow-up to resolution is recommended. 3. Trace pleural effusions, left larger than right. 4. Multinodular goiter, with an 8 cm heterogeneous mass lesion extending into the mediastinum. This is pathologically indeterminant and likely represents extension of the goiter. 5. Additional findings as above. Electronically signed by: Derrick Mancuso M.D. 07/31/2020 6:47 PM Medications Administered Sodium Chloride (Nss 1000ml) 1,000 mls @ 250 mls/hr IV .Q4H BONG Stop: 08/30/20 13:44 Last Admin: 07/31/20 20:22 Dose: 250 mls/hr Documented by: [id number] Infusion: 07/31/20 18:07 Dose: 250 mls/hr Documented by: [id number] Admin: 07/31/20 14:07 Dose: 250 mls/hr Documented by: [id number] Discontinued Medications Doxycycline Hyclate (Doxycycline Hyclate 100 Mg Cap) 100 mg PO NOW STA Stop: 07/31/20 19:05 Last Admin: 07/31/20 19:26 Dose: 100 mg Documented by: [id number] Ceftriaxone Sodium (Rocephin) 2,000 mg in 70 mls @ 140 mls/hr IV NOW STA Stop: 07/31/20 19:33 Last Infusion: 07/31/20 20:22 Dose: 0 mls/hr Documented by: [id number] Admin: 07/31/20 19:26 Dose: 140 mls/hr Documented by: [id number] Ioversol (Optiray 350 500ml) 120 ml IV ONCE ONE Stop: 07/31/20 18:13 Last Admin: 07/31/20 18:13 Dose: 120 ml Documented by: [id number] ECG Additional Comments: Test Reason : Vent. Rate : 103 BPM Atrial Rate : 103 BPM P-R Int : 122 ms QRS Dur : 084 ms QT Int : 336 ms P-R-T Axes : 049 019 036 degrees QTc Int : 440 ms Poor data quality, interpretation may be adversely affected Sinus tachycardia Nonspecific ST abnormality Abnormal ECG Code Status & VTE Plan Code Status CODE: FULL VTE: SCD"s, Lovenox 40 SQ daily VTE Prophylaxis Plan VTE Prophylaxis will be ordered: Yes Supervising Physician Co-Signing Physician Notes Attending addendum: I have physically seen this patient, have supervised the [facility]AD[facility]'s activities, and agree with the H&P unless as otherwise noted. Assessment and Plan: Bilateral lobar pneumonia with small pleural effusions- Duonebs every 4 hours while awake and every 2 hours when necessary. Ceftriaxone 1 g IV daily Doxycycline 100 mg p.o. twice daily Follow blood and sputum cultures Thyroid goiter- Multinodular goiter extending 8 cm into the mediastinum We will need outpatient follow-up No suggestion of airway compromise at this time Abnormal LFTs- Follow serial laboratories. Ultrasound shows hepatic steatosis and possible early cirrhosis Check hepatitis profile and abnormal LFT profile if laboratories persist elevated Follow laboratories for anaplasmosis and ehrlichiosis PG Care Time/CCT Total # of Minutes Spent Total Time Spent with Patient: Total time spent is greater than 50% in coordination of care (as documented) at patient's floor/unit and/or counseling patient: Coding Level of Care Code 90605 Initial Inpt Care Lvl 3 Diagnoses Pneumonia J18.9 Laterality: bilateral Lung location: lower lobe of lung Pneumonia type: due to unspecified organism Fever R50.81 Fever type: due to other condition Asthma J45.909 Asthma complication type: unspecified Asthma persistence: unspecified Asthma severity: unspecified severity Thyroid goiter E04.9 Osteopenia M85.80 Osteopenia location: unspecified Elevated liver enzymes R74.8 (1) Fever Fever type: due to other condition Qualified Code(s): R50.81 - Fever presenting with conditions classified elsewhere (2) Osteopenia Osteopenia location: unspecified Qualified Code(s): M85.80 - Other specified disorders of bone density and structure, unspecified site (3) Pneumonia Laterality: bilateral Lung location: lower lobe of lung Pneumonia type: due to unspecified organism Qualified Code(s): J18.9 - Pneumonia, unspecified orga nis (4) Asthma Asthma complication type: unspecified Asthma persistence: unspecified Asthma severity: unspecified severity Qualified Code(s): J45.909 - Unspecified asthma, uncomplicated
[2020-07-31] MEDS ORDERED: ALBUTEROL HFA 8 GM INHALER INH PRN (22:01)
[2020-07-31] MEDS ORDERED: ONDANSETRON INJ 2 MG/ML 2 ML VIAL IV PRN (22:01)
[2020-07-31] MEDS ORDERED: ACETAMINOPHEN 325 MG TAB PO PRN (22:01)
[2020-07-31] MEDS ORDERED: POLYETHYLENE (MIRALAX) 17 GM PACK PO PRN (22:01)
[2020-07-31] MEDS ORDERED: LACTATED RINGER'S 1,000 ML IV ONE (22:01)
[2020-07-31] MEDS ORDERED: CALCIUM CARBONATE 500 MG CHEWABLE TAB PO PRN (22:01)
[2020-07-31] MEDS: ENOXAPARIN INJ 40 MG/0.4 ML SYR SQ SCH (23:28)
[2020-08-01] MEDS: LEVOTHYROXINE SODIUM 50 MCG TABLET PO SCH (05:36)
[2020-08-01] MEDS ORDERED: DOXYCYCLINE HYCLATE 100 MG in DEXTROSE 5% 100 ML IV SCH (06:00)
[2020-08-01 08:55] LABS: Basophils # (auto) 0.04 K/uL (0-0.2); Basophils % (auto) 0.9 %; Eosinophils # (auto) 0.04 K/uL (0-0.5); Eosinophils % (auto) 0.9 %; Hematocrit (blood only) 35.1 % (37-47); Hemoglobin 12.1 g/dL (12.0-16.0); Immature Granulocytes # (auto) 0.01 K/uL (0.00-0.02); Immature Granulocytes % (auto) 0.2 %; Lymphocytes # (auto) 1.23 K/uL (1.2-3.4); Lymphocytes % (auto) 27.1 %; Mean Corpuscular Hemoglobin 31.5 pg (25-34); Mean Corpuscular Hgb Conc 34.5 g/dL (32-36); Mean Corpuscular Volume 91.4 fL (80-100); Mean Platelet Volume 9.6 fL (7.4-10.4); Monocytes # (auto) 0.47 K/uL (0.11-0.59); Monocytes % (auto) 10.4 %; Neutrophils # (auto) 2.75 K/uL (1.4-6.5); Neutrophils % (auto) 60.5 %; Platelet Count 223 K/uL (130-400); RDW Coefficient of Variation 14.1 % (11.5-14.5); RDW Standard Deviation 47.4 fL (36.4-46.3); Red Blood Count 3.84 M/uL (4.2-5.4); White Blood Count 4.54 K/uL (4.8-10.8)
[2020-08-01 09:24] LABS: BUN Creatinine Ratio 11.3 (10-20); Calcium 7.5 mg/dl (8.5-10.1); Creatinine Clr Calc Pharmacy 73.5 ml/min; Est GFR (Non-African American) 89.8 ml/min; Magnesium 2.3 mg/dl (1.8-2.4); Potassium 3.4 mmol/L (3.5-5.1)
[2020-08-01] MEDS: POTASSIUM CHLORIDE CRTAB 20 MEQ TABCR PO SCH ×2 (10:56→19:49)
[2020-08-01] MEDS: amLODIPine BESYLATE 5 MG TAB PO SCH (10:56)
--- NOTE | 2020-08-01 16:13 | Medical Student Progress Note ---
Date of Service August 01, 2020 Assessment & Plan (1) Pneumonia: This patient is a 79 year old woman with a pmh of goiter, asthma, and osteopenia who presented to the ED after 10 days of fever, weakness and fatigue. Pneumonia * Chest x-ray and CTA Chest showed bibasilar consolidation, left greater than right representing atelectasis vs pneumonia. Trace pleural effusions. * She was started on Doxy and Rocephin in the ED for empiric coverage of community acquired pneumonia and tick borne illness. Doxy stopped today due to negative Lyme and anaplasma labs. * Blood and urine cultures pending. Elevated Liver Enzymes * On 08/01: AST 75, ALT 126, Alk Phos 171, albumin 0.7. * Abdominal ultrasound showed: Hepatic steatosis. Heterogeneity of the liver and slight nodularity of the liver surface raises the possibility of cirrhosis. Laterality: bilateral Lung location: lower lobe of lung Pneumonia type: due to unspecified organism Qualified Code(s): J18.9 - Pneumonia, unspecified organism (2) Elevated liver enzymes: (3) Thyroid goiter: (4) Osteopenia: Osteopenia location: unspecified Qualified Code(s): M85.80 - Other specified disorders of bone density and structure, unspecified site Admission and Anticipated Discharge Date Admission Date: July 31, 2020 Supervising Attestation I also saw the patient with the medical student and resident physician and independently performed a history and physical. I agree with the impression and plan as noted in the documentation. The medical student assisted and documenting the services. The patient had actually called our office yesterday around noon reporting continued weakness. She also noted some right upper quadrant abdominal pain. Based on her symptoms, we referred her to the emergency department for further evaluation. It is noted the patient had been seen in our clinic (virtual visit) with subsequent blood work about 1 week ago; her blood work was largely unremarkable, but her symptoms of fever, weakness, and generalized malaise had continued for the entire week. She was seen and evaluated emergency department and found on imaging to have bibasilar consolidations. This morning, the patient still notes being tired. She is lying in bed reading a book. She denies any dyspnea. She would actually like to go home. Exam 122/73, 95, 18, 37 C, 95% on room air She is pleasant. Alert. No distress appreciated. She speaks in full sentences without any dyspnea. Heart regular Lungs are clear, slightly decreased in the bases. She does cough with deep inspiration. Abdomen soft and nontender. Data White blood count 4.54, hemoglobin 12.1 Sodium 140, potassium 3.4, BUN 6, creatinine 0.54 MRSA screen is negative. Anaplasma smear was negative. COVID-[address] of the chest is consistent with bibasilar consolidations, left greater than right. Trace pleural effusions, left larger than right. He multinodular goiter with extension into the mediastinum. There is no evidence of pulmonary embolism. An ultrasound of the right upper quadrant demonstrates hepatic steatosis, a small gallbladder polyp, and no biliary ductal dilatation. There was also mention of slight nodularity of the liver surface raising possibility of cirrhosis. Blood cultures drawn are pending. A urine culture collected 07/31/2020 shows pinpoint growth, reintubating Impression and plan Pneumonia Clinical course of fever, malaise, and generalized fatigue along with imaging findings consistent with a bibasilar pneumonia. Suspect abdominal pain was secondary to diaphragmatic irritation. Elevated hepatic enzymes with radiographic findings of steatohepatitis, questionable cirrhosis We will have to review outpatient chart to see if this is a new finding. Else per documentation above. If blood cultures are -24 hours and she continues to feel well, consider discharge in AM Subjective This patient is a 79 year old woman with a pmh of goiter, asthma, and osteopenia who presented to the ED after 10 days of fever, weakness and fatigue. On Monday 07/24 she had a 102.7F fever and presented to Urgent Care. She got a negative covid test and was told to follow-up with her PCP through telehealth the next day. Her PCP ordered lab work including Lyme which was negative. Yesterday, patient called her PCP office asking for her labs results and was t old to go to the ED due to continuing weakness, fatigue, fever, and pain in her subcostal area when breathing in deeply. In the ED, she had an episode of vomiting while eating dinner, 10 minutes after taking her doxycycline pill. This morning, she still feels weak but has no nausea or vomiting. She has not had any SOB, cough, or chest pain in the last 2 weeks. She denies dysuria or frequency. She is an avid photographic machine operator and spent 3 days gardening before her symptoms started. She is careful about checking for ticks and does not remember a tick bite. No sick exposures and she is fully COVID-19 vaccinated. Review of Systems Constitutional: + fatigue; no fever and no chills Respiratory: no cough and no dyspnea Cardiovascular: no chest pain, no palpitations, no lightheadedness, no edema and no calf pain Gastrointestinal: + diarrhea/loose stools; no abdominal pain, no nausea and no vomiting Genitourinary: no dysuria and no urinary frequency Integumentary: no rash and no lesions Neurologic: no headache(s) Physical Exam Constitutional: no acute distress Respiratory: normal respiratory effort, lungs clear to auscultation no cough Auscultation: no crackles, no wheezes and no egophony Cardiovascular: RRR, no murmur, no edema Vessels: no carotid bruit Extremities: no calf tenderness Gastrointestinal (Abdomen): Percussion/Palpation: abdomen soft; abdomen nontender Psychiatric: A+Ox3, euthymic affect Results & Data ([facility]) Vital Signs (Past 12 Hours) Vital Signs Temp Pulse Resp BP BP Pulse Ox 08/01/20 15:34 37.0 C 95 H 18 122/73 95 08/01/20 10:59 36.6 C 93 H 18 108/47 L 94 08/01/20 07:14 36.7 C 85 18 105/61 95 Laboratory Results Laboratory Results WBC 4.54 K/uL (4.8-10.8) L 08/01/20 08:17 RBC 3.84 M/uL (4.2-5.4) L 08/01/20 08:17 Hgb 12.1 g/dL (12.0-16.0) 08/01/20 08:17 Hct 35.1 % (37-47) L 08/01/20 08:17 MCV 91.4 fL (80-100) 08/01/20 08:17 MCH 31.5 pg (25-34) 08/01/20 08:17 MCHC 34.5 g/dL (32-36) 08/01/20 08:17 RDW Std Deviation 47.4 fL (36.4-46.3) H 08/01/20 08:17 RDW Coeff of Puneet 14.1 % (11.5-14.5) 08/01/20 08:17 Plt Count 223 K/uL (130-400) 08/01/20 08:17 MPV 9.6 fL (7.4-10.4) 08/01/20 08:17 Immature Gran % (Auto) 0.2 % 08/01/20 08:17 Neut % (Auto) 60.5 % 08/01/20 08:17 Lymph % (Auto) 27.1 % 08/01/20 08:17 Page % (Auto) 10.4 % 08/01/20 08:17 Eos % (Auto) 0.9 % 08/01/20 08:17 Baso % (Auto) 0.9 % 08/01/20 08:17 Neut # (Auto) 2.75 K/uL (1.4-6.5) 08/01/20 08:17 Lymph # (Auto) 1.23 K/uL (1.2-3.4) 08/01/20 08:17 Page # (Auto) 0.47 K/uL (0.11-0.59) 08/01/20 08:17 Eos # (Auto) 0.04 K/uL (0-0.5) 08/01/20 08:17 Baso # (Auto) 0.04 K/uL (0-0.2) 08/01/20 08:17 Immature Gran # (Auto) 0.01 K/uL (0.00-0.02) 08/01/20 08:17 Sodium 140 mmol/L (136-145) 08/01/20 08:17 Potassium 3.4 mmol/L (3.5-5.1) L 08/01/20 08:17 Chloride 108 mmol/L (98-107) H 08/01/20 08:17 Carbon Dioxide 25 mmol/L (21-32) 08/01/20 08:17 Anion Gap 7.0 (3-11) 08/01/20 08:17 BUN 6 mg/dl (7-18) L 08/01/20 08:17 Creatinine 0.54 mg/dl (0.6-1.2) L 08/01/20 08:17 Est Cr Clr Drug Dosing 73.5 ml/min 08/01/20 08:17 Est GFR ( Amer) 104.0 ml/min 08/01/20 08:17 Est GFR (Non-Af Amer) 89.8 ml/min 08/01/20 08:17 BUN/Creatinine Ratio 11.3 (10-20) 08/01/20 08:17 Glucose 106 mg/dl (70-99) H 08/01/20 08:17 Lactate 1.2 mmol/L (0.4-2.0) 07/31/20 21:15 Calcium 7.5 mg/dl (8.5-10.1) L 08/01/20 08:17 Magnesium 2.3 mg/dl (1.8-2.4) 08/01/20 08:17 Total Bilirubin 0.7 mg/dl (0.2-1) 07/31/20 14:06 AST 75 U/L (15-37) H 07/31/20 14:06 ALT 126 U/L (12-78) H 07/31/20 14:06 Alkaline Phosphatase 171 U/L (45-117) H 07/31/20 14:06 Troponin I < 0.015 ng/ml (0-0.045) 07/31/20 14:06 C-Reactive Protein 11.00 mg/dl (0-0.29) H 07/31/20 14:06 NT-Pro-B Natriuret Pep 427 pg/ml (0-1800) 07/31/20 14:06 Total Protein 6.9 gm/dl (6.4-8.2) 07/31/20 14:06 Albumin 2.8 gm/dl (3.4-5.0) L 07/31/20 14:06 Globulin 4.1 gm/dl (2.5-4.0) H 07/31/20 14:06 Albumin/Globulin Ratio 0.7 (0.9-2) L 07/31/20 14:06 Lipase 120 U/L (73-393) 07/31/20 14:06 Procalcitonin 0.16 ng/ml (0-0.5) 07/31/20 14:06 TSH 0.470 uIu/ml (0.300-4.500) 07/31/20 14:06 Urine Color Dark Yellow 07/31/20 13:45 Urine Appearance Cloudy (Clear) A 07/31/20 13:45 Urine pH 5.5 (4.5-7.5) 07/31/20 13:45 Ur Specific [place] 1.017 (1.000-1.030) 07/31/20 13:45 Urine Protein 1+ (Negative) H 07/31/20 13:45 Urine Glucose (UA) Negative (Negative) 07/31/20 13:45 Urine Ketones Trace (Negative) H 07/31/20 13:45 Urine Blood Negative (Negative) 07/31/20 13:45 Urine Nitrite Negative (Negative) 07/31/20 13:45 Urine Bilirubin Negative (Negative) 07/31/20 13:45 Urine Urobilinogen Positive (Negative) H 07/31/20 13:45 Ur Leukocyte Esterase 1+ (Negative) H 07/31/20 13:45 Urine WBC (Auto) 5-10 /hpf (0-5) H 07/31/20 13:45 Urine RBC (Auto) 0-4 /hpf (0-4) 07/31/20 13:45 U Hyaline Cast (Auto) 1-5 /lpf (0-5) 07/31/20 13:45 U Epithel Cells (Auto) 10-20 /lpf (0-5) H 07/31/20 13:45 Urine Bacteria (Auto) Negative (Negative) 07/31/20 13:45 Nasal Screen MRSA (PCR) Negative (Negative) 08/01/20 11:13 Anaplasma Smear See Comment 07/31/20 14:06 COVID-19 Eval Order Covid19 at [facility] 07/31/20 19:25 SARS-CoV-2 (PCR) NEGATIVE (Negative) 07/31/20 19:25 Impressions Chest X-Ray 07/31/20 13:29 XR chest 1V portable HISTORY: Atypical chest pain. COMPARISON: Chest 04/09/2015. FINDINGS: No pneumothorax. The heart is borderline enlarged. There is mild diffuse interstitial/vascular thickening. This may represent mild pulmonary edema. Small left pleural effusion and left basilar densities. Right tracheal deviation, unchanged. This could be due to a left-sided thyroid goiter. There is progressive soft tissue prominence within the left paratracheal/superior mediastinal location. IMPRESSION: 1. Progressive interstitial/vascular thickening and a small left pleural effusion. This favors mild interstitial pulmonary edema. 2. Left basilar densities are nonspecific but favor atelectasis from the pleural effusion. 3. Right tracheal deviation, unchanged. There is slight progression of the soft tissue prominence within the superior mediastinum. This favors a thyroid goiter. However, dedicated nonemergent chest CT is recommended for further evaluation. ACT 112: Negative or not required by law. Electronically signed by: Cleveland Sims M.D. 07/31/2020 2:10 PM Abdomen Ultrasound 07/31/20 15:41 ABDOMINAL ULTRASOUND, RIGHT UPPER QUADRANT HISTORY: Abnormal liver function tests, fever. COMPARISON: None. FINDINGS: The liver is echogenic. The liver is heterogeneous. There is slight nodularity of the liver surface. No biliary ductal dilatation is present. Common bile duct measures 4 mm in caliber. No gallstones are identified. There is a tiny 4 mm gallbladder polyp. Pancreatic body is normal. Head and tail are obscured. There is no right hydronephrosis. IMPRESSION: 1. Hepatic steatosis. Heterogeneity of the liver and slight nodularity of the liver surface raises the possibility of cirrhosis. 2. No gallstones. Tiny 4 mm gallbladder polyp. 3. No biliary ductal dilatation. ACT 112: Negative or not required by law. Electronically signed by: Mehdi Gonzalez M.D. 07/31/2020 4:51 PM Chest CTA 07/31/20 17:31 CT ANGIOGRAM OF THE CHEST CLINICAL HISTORY: Atypical chest pain. Pleural effusion. COMPARISON STUDY: Chest x-ray dated 07/31/2020. TECHNIQUE: Following the IV administration of 120 cc of Optiray 350, CT angiogram of the chest was performed from the upper abdomen to the thoracic inlet utilizing the pulmonary embolus protocol. Images are reviewed in the axial, sagittal, and coronal planes. 3-D MIPS images are created and assessed. IV contrast was administered without complication. A dose lowering technique was utilized adhering to the principles of ALARA. CT DOSE: 294.97 mGy.cm FINDINGS: Thyroid: The thyroid gland is enlarged and heterogeneous. An approximately 8 cm heterogeneous structure extending into the mediastinum and causing rightward deviation of the trachea likely represents a thyroid goiter. This contains coarse calcifications. Thoracic aorta: The thoracic aorta is normal in caliber and demonstrates bovine variant arch anatomy. No dissection is seen. Pulmonary vasculature: The pulmonary trunk is normal in caliber. There are no filling defects identified in main, lobar, or segmental pulmonary branches to suggest pulmonary embolus. Heart: The heart is top normal in size and without pericardial effusion. Lungs and pleural spaces: Evaluation of the lung parenchyma is degraded by motion artifact. There is bibasilar consolidation, left greater than right. There are trace pleural effusions, left larger than right. The trachea and central airways are clear. There is mild diffuse intralobular septal thickening. Mediastinum: There are mildly enlarged mediastinal lymph nodes. A precarinal node on image #157 measures 12 mm in short axis. Prevascular nodes measure up to 9 mm in short axis. Thuy: Clear. Axillae: There is no axillary lymphadenopathy. Upper abdomen: There is a small hiatal hernia. Partially visualized upper abdominal viscera is otherwise within normal limits. Skeletal structures: The skeletal structures are osteopenic. Degenerative change and hyperkyphosis are noted in the thoracic spine. No lytic or blastic bony lesions are seen. IMPRESSION: 1. There is no evidence of pulmonary embolus in the main, lobar, or segmental pulmonary arteries. 2. There is bibasilar consolidation, left greater than right. This could represent atelectasis versus pneumonia/aspiration pneumonitis. Clinical correlation will be required and radiographic follow-up to resolution is recommended. 3. Trace pleural effusions, left larger than right. 4. Multinodular goiter, with an 8 cm heterogeneous mass lesion extending into the mediastinum. This is pathologically indeterminant and likely represents extension of the goiter. 5. Additional findings as above. ACT 112: Negative or not required by law. Electronically signed by: Derrick Mancuso M.D. 07/31/2020 6:47 PM
[2020-08-01] MEDS: cefTRIAXone SODIUM 2,000 MG in DEXTROSE 5% 50 ML IV SCH (19:49)
[2020-08-01] MEDS: ENOXAPARIN INJ 40 MG/0.4 ML SYR SQ SCH (19:49)
--- NOTE | 2020-08-02 04:23 | Billing Data ---
Date of Service August 02, 2020 Coding Level of Care Code 23252 Initial Inpt Care Lvl 3
[2020-08-02] MEDS: LEVOTHYROXINE SODIUM 50 MCG TABLET PO SCH (05:40)
[2020-08-02 07:40] LABS: Basophils # (auto) 0.01 K/uL (0-0.2); Basophils % (auto) 0.2 %; Eosinophils % (auto) 2.4 %; Hematocrit (blood only) 35.9 % (37-47); Immature Granulocytes # (auto) 0.01 K/uL (0.00-0.02); Immature Granulocytes % (auto) 0.2 %; Lymphocytes # (auto) 1.52 K/uL (1.2-3.4); Lymphocytes % (auto) 36.7 %; Mean Corpuscular Hemoglobin 30.7 pg (25-34); Mean Corpuscular Hgb Conc 33.4 g/dL (32-36); Mean Corpuscular Volume 91.8 fL (80-100); Mean Platelet Volume 9.4 fL (7.4-10.4); Monocytes # (auto) 0.55 K/uL (0.11-0.59); Monocytes % (auto) 13.3 %; Neutrophils # (auto) 1.95 K/uL (1.4-6.5); Neutrophils % (auto) 47.2 %; Platelet Count 271 K/uL (130-400); RDW Coefficient of Variation 14.1 % (11.5-14.5); Red Blood Count 3.91 M/uL (4.2-5.4); White Blood Count 4.14 K/uL (4.8-10.8)
[2020-08-02 08:08] LABS: BUN Creatinine Ratio 10.2 (10-20); Est GFR (African American) 98.9 ml/min; Est GFR (Non-African American) 85.3 ml/min; Magnesium 2.5 mg/dl (1.8-2.4); Potassium 4.2 mmol/L (3.5-5.1)
[2020-08-02] MEDS: POTASSIUM CHLORIDE CRTAB 20 MEQ TABCR PO SCH (08:18)
[2020-08-02] MEDS: amLODIPine BESYLATE 5 MG TAB PO SCH (08:22)
--- NOTE | 2020-08-02 10:58 | Med Student Discharge Summary ---
Date of Service August 02, 2020 Admission HPI Per Admitting Provider 79 YOF with past medical history of: Asthma, Hypothyroidism, HTN. Patient comes in today for ongoing fevers, chills, mild myalgia, and fatigue. Patient says for about a week she has been having fevers and monitoring at home she had a fever of high 102.7. She was seen at an Urgent care last week, where she had a COVID test done that was reportedly negative and she had a urine test that was done that was reported as negative. She called her PCP on of last week, where she had a telehealth visit done secondary to her having fevers. She had labs drawn and was to be contacted if any abnormalities. She did not hear any results or call-backs so she called them today and told them of her continued symptoms and was referred to the Emergency Department. The patient denies any sick contacts or traveling. Everyone in household is not feeling ill. The patient does spend allot of her time outside gardening and working with her waite. She does have a pet dog. She denies any tick bites or removing a tick off her. She reportedly had a Lyme test run. Her lab results from PCP on 25Jul2020- WBC 2.1- PLT-60 with rest of cell lines normal range. In the EMD the patient had a CXR done, CTA of the chest, and RUQ ultrasound performed, she has bibasilar consolidation; small bilateral effusions LT>RT. Also with Multinodular goiter, with an 8 cm heterogeneous mass lesion extending into the mediastinum. This is pathologically indeterminant and likely represents extension of the goiter. Admission Exam (Per Admitting) Constitutional PHYSICAL EXAM: General: awake, alert, no apparent distress Head: Normocephalic, atraumatic ENT: PERRL, EOMI, no pharyngeal exudate, mucous membranes moist Neuro: AAO x 3, speech clear and appropriate, strength intact bilaterally 5/5, sensation intact and equal all extremities and dermatomes, no pronator drift Chest: equal rise and fall of the chest, no accessory muscle use, no heaves or thrills, scattered rhonchi decreased in bases, egophony in lower lobes, on room air Cardiac: Regular rate and rhythm, telemetry reviewed, skin warm dry, cap refill <3 seconds, peripheral pulses +2 no JVD, no murmur, no JVD, no edema GI: NABS x 4 quadrants, soft, nontender to palpation, no rebound, guarding or tenderness : Spontaneously voiding, no pain, no CVA tenderness, Extremities: Normal inspection, no peripheral edema or erythema, calfs nontender to palpation Psych: Normal mood and affect Skin: no rash or erythema Discharge Data Consultations 07/31/20 19:54 ED Decision to Admit Stat Hospital Course (1) Pneumonia: Pneumonia * Chest x-ray and CTA Chest showed bibasilar consolidation, left greater than right representing atelectasis vs pneumonia. Trace pleural effusions. * She was started on Doxy and Rocephin in the ED for empiric coverage of community acquired pneumonia and tick borne illness. Doxy stopped 08/01/20 due to negative Lyme and anaplasma labs. * Preliminary 24 hour blood cultures showed no growth. Urine culture showed mixed sandro likely skin. Patient is clinically stable and safe to go home on PO antibiotics. She is agreeable to return to the hospital in the event of growth in blood cultures past 24 hours. * Patient received 3 doses of ceftriaxone inpatient including day of discharge. Send home on cefdinir PO for 4 additional days, last dose on 08/06/20. Diarrhea * Several loose stools while inpatient. She denies profuse watery diarrhea or bloody stool, abdominal pain or cramping. C-diff labs negative. Likely self- limited course of mild diarrheal illness not requiring additional antibiotics. Electrolytes stable. Elevated Liver Enzymes * On 08/01: AST 75, ALT 126, Alk Phos 171, albumin 0.7. * Abdominal ultrasound showed: Hepatic steatosis. Heterogeneity of the liver and slight nodularity of the liver surface raises the possibility of cirrhosis. * Follow-up with PCP Thyroid Goiter * Chest x-ray showed slight progression of the soft tissue prominence within the superior mediastinum consistent with known thyroid goiter. * CT Chest: The thyroid gland is enlarged and heterogeneous. An approximately 8 cm heterogeneous structure extending into the mediastinum and causing rightward deviation of the trachea likely represents a thyroid goiter. This contains coarse calcifications. * Patient managed on levothyroxine 50mcg. Follow-up with PCP Osteopenia * Managed on calcium carbonate. F/u with PCP. (2) Elevated liver enzymes: (3) Thyroid goiter: (4) Osteopenia: Discharge Plan Discharge Items Patient Disposition: Home - Self-Care Reason For Visit: PNEUMONIA Discharge Diagnosis: Pneumonia Activity: Resume your previous activity Non-emergency contact: Primary Care Provider Call non-emergency contact if: your symptoms worsen and you have a fever Follow-up/Referrals: Jennifer Garcia [Primary Care Provider] - 08/08/20 12:50 pm (Your appointment is with Dr Manuel at the [facility] [address] [facility] office. If you have any questions or need to change this appointment, please call [phone].) Diet: Regular Addtl Attending Provider Instructions: You were admitted to the hospital for pneumonia. You were treated with IV antibiotics. We feel it is safe for you to return home. If your blood cultures come back positive (which would mean an infection of the blood), we will call you right away. This is unlikely, but for the next 24-48 hours, you should be accessible by phone just in case. A discharge summary will be sent to your primary care physician to ensure continuity of care. Please bring this discharge summary with you to your next office appointment so that your provider can review it at that time. Follow-up appointments: Make a follow-up appointment with your PCP within the next week. It is very important that you follow up with them shortly after discharge from the hospital. Keep all your follow-up appointments as already scheduled. If you cannot make an appointment, notify your provider. Medications: Your medication list has been reviewed and reconciled upon discharge to ensure accuracy and continuity of care. An updated list of all your medications is included with your hospital discharge paperwork. Please review this list closely, and make note of any changes. * We sent a new medication called cefdinir to your pharmacy. Take cefdinir (300mg) one capsule twice daily for four days (08/03-08/06). Take your medications as instructed; do not skip a dose of your medicines. Make sure all of your doctors know every medicine you are taking (including [id number] medicines, vitamins, and supplements). Call your primary care provider before taking any new medicines (including zasn-[id number] medicines, vitamins, and supplements), because some of these may interact with your current medications, or may make your symptoms worse. Tell your primary care provider if you cannot afford your medications. CONTACT YOUR PRIMARY CARE PROVIDER if you experience any of the following: Persistent fever, chills Shortness of breath Persistent diarrhea Any other signs of infection or symptoms that are concerning to you Difficulty following your treatment plan, or difficulty taking medications CALL 911 OR GO TO THE EMERGENCY DEPARTMENT if you experience any of the following: Sudden, severe abdominal pain or nausea/vomiting Severe chest pain, or chest pain that radiates (moves) to your jaw or arm Sudden, severe shortness of breath or difficulty breathing Thank you for allowing us to participate in your care. Pending Studies at Discharge: No Stand-Alone Forms: [facility] Medications and DC Order Prescriptions: New cefdinir 300 mg capsule 300 mg PO BID 4 Days Qty: 8 RF: 0 Continued amlodipine 2.5 mg tablet 2.5 mg PO DAILY RF: 0 levothyroxine 50 mcg tablet 50 mcg PO DAILYBB RF: 0 calcium carbonate 200 mg calcium (500 mg) Tablet,Chewable 200 mg PO BID PRN (Reason: Acid Reflux) RF: 0 albuterol sulfate 90 mcg/actuation HFA aerosol inhaler 2 puff INHALATION QID PRN (Reason: Shortness Of Breath Or Wheezing) RF: 0 Discharge Orders: Discharge Order (Routine); Ordered 08/02/20 Ordered By: Sudheer Stevens Admission Data Admit Date/Time: 07/31/20 21:19 Attending Provider: Yuri Michaud Admit Provider: Geovany Leong Primary Care Provider: Jennifer Garcia Other Providers: Alon Dia Other Interventions: Discharge Summary Assessment (RN) Last Done: 08/02/20 12:55 Supervising Attestation Patient seen with resident and medical student team. Agree with history, exam findings, assessment and plan as documented. In brief, Sharon is a 79-year-old female with history of asthma, hypothyroidism and hypertension who was admitted with fevers, chills, myalgias and fatigue found to have community-acquired pneumonia. Chest x-ray and CTA showed bibasilar consolidations, left greater than right with trace pleural effusions. She is started on doxy and Rocephin for empiric coverage of both community- acquired pneumonia and tickborne illness. The doxycycline was stopped and ceftriaxone was continued. She will be discharged on an additional 4 days of cefdinir. During her stay, she had several episodes of loose stools. C. difficile was negative. On the day of discharge, her mild loose stools had completely resolved. Her liver enzymes were noted to be elevated. Abdominal ultrasound showed hepatic steatosis nodularity of the liver surface possibly consistent with cirrhosis. Other chronic issues were stable and home medications were continued. She will be discharged home. I personally spent 35 minutes discharge planning for this patient.
[2020-08-02] MEDS ORDERED: cefTRIAXone SODIUM 1,000 MG in DEXTROSE 5% 50 ML IV SCH (12:00)
[2020-08-02] MEDS: cefTRIAXone SODIUM 2,000 MG in DEXTROSE 5% 50 ML IV SCH (12:48)
--- NOTE | 2020-08-04 13:24 | Communication Note ---
Date of Service: August 04, 2020 Send out anaplasmosis labs returned positive, initial screen while hospitalized was negative. Based on result doxycycline 100mg PO BID x7 day course of jovani tment sent to patients pharmacy. Attempted to reach patient by phone x2 and next contact x1, all calls sent to voicemail. Brief message left stating above, and instructions to followup with PCP Dr. Garcia with any additional questions.
[2020-08-06 13:01] LABS: Ehrlichia chaff IgG Ab <1:64 (<1:64); Ehrlichia chaff IgM Ab <1:20 (<1:20)
== END 2020-08-02 14:28 | disposition home or self-care (01) | DRG 194 ==
LOC: ED 13:00 → SUATTDRO 21:19 → 2W 21:19